=== PATIENT | male | born 1980 | race Caucasian/White ===

== ENCOUNTER → 2025-02-13 | Day surgery (SDC) | payer BC ==
[~2025-02-13] MED LIST: CALCIUM; DAILY VALUE1 EACH; FENTANYL CITRATE/PF 100MCG/2 ML INJ ONE; GLUCAGON FOR INJ 1 MG VIAL ONE; LISINOPRIL-HCT1 EAC1 PO; METOPROLOL TART50 MG PO; MIDAZOLAM HCL 2 MG/2 ML VIAL ONE; OVIDREL250 MCG/0.; PROPOFOL IV EMULSION 10 MG/ML 20 ML VIAL ONE; TESTOSTERONE IM; TRAZODONE HCL100 MG PO; ULORIC80 MG PO; VITAMIN D
[2025-02-13] MEDS: LACTATED RINGER'S 1,000 ML ONE (08:08)
[2025-02-13 09:49] VITALS: TEMP 98.9
[2025-02-13 10:00] VITALS: BP 109/74; PULSE 72; RESP 15; O2SAT 97
== END | disposition home or self-care (01) ==
LOC: OR 06:43
PROVIDERS: ATTEND Internal Medicine Gastroenterology
DX: Z12.11 Encounter for screening for malignant neoplasm of colon (principal); D12.2 Benign neoplasm of ascending colon; K57.30 Diverticulosis of large intestine without perforation or abscess without bleeding; K64.8 Other hemorrhoids; K21.9 Gastro-esophageal reflux disease without esophagitis; D64.9 Anemia, unspecified; I10 Essential (primary) hypertension; B33.22 Viral myocarditis; U09.9 Post COVID-19 condition, unspecified; F17.290 Nicotine dependence, other tobacco product, uncomplicated; Z88.6 Allergy status to analgesic agent; Z88.1 Allergy status to other antibiotic agents; Z88.0 Allergy status to penicillin; Z01.810 Encounter for preprocedural cardiovascular examination
CPT/HCPCS: 45378; 45385; 93005; J1610; J2250